=== PATIENT | male | born 1995 | race Caucasian/White ===

== ENCOUNTER 2017-07-07 14:04 | Emergency (ER) | payer MEDICAID | END 2017-07-07 14:11 | LOC: JD.ED 14:04 | DX: Z53.21 Procedure and treatment not carried out due to patient leaving prior to being seen by health care provider (principal) ==

== ENCOUNTER 2021-10-28 13:31 | Emergency (ER) | payer MEDICAID | END 2021-10-28 15:50 | disposition home or self-care (01) | LOC: JD.ED 13:31 | DX: G56.01 Carpal tunnel syndrome, right upper limb (principal); Z72.0 Tobacco use; Z86.16 Personal history of COVID-19 | CPT/HCPCS: 29125; 93971-26-RT; 93971-RT; 99284; 99284-25 ==